=== PATIENT | male | born 1985 | race Caucasian/White ===

== ENCOUNTER 2021-06-23 14:51 | Emergency (ER) | payer MEDICAID ==
[~2021-06-23] VITALS: Ht 177.8 cm; Wt 120.0 kg
[~2021-06-23 14:51] MED LIST: ONDA4TAB59 PO
[2021-06-23] MEDS ORDERED: albuterol 2.5 MG/3 ML nebule CONTNEB PRN (15:05)
[2021-06-23] MEDS ORDERED: methylPREDNISolone sod succ 125mg/2ml vial IV ONE (15:05)
[2021-06-23] MEDS ORDERED: normal saline 1000ML IV soln IVB ONE (15:05)
[2021-06-23] MEDS ORDERED: magnesium 2GM in 50ml NS 50 ML IV ONE (15:05)
[2021-06-23] MEDS ORDERED: ipratropium/albuterol 3ml nebule NEB ONE (16:30)
[2021-06-23] MEDS ORDERED: PRED20TA PO (17:08)
[2021-06-23] MEDS ORDERED: BUDE180A INH (17:08)
[2021-06-23] MEDS ORDERED: IPRA3AMP31 IH (18:02)
[2021-06-23 18:15] VITALS: BP 126/60
== END 2021-06-23 18:16 | disposition home or self-care (01) ==
LOC: ER 14:51
DX: J45.901 Unspecified asthma with (acute) exacerbation (principal); F15.90 Other stimulant use, unspecified, uncomplicated; Z79.899 Other long term (current) drug therapy
CPT/HCPCS: 71045; 93005; 94644; 96365; 96366; 96375; 99285; J2930; J3475; J7030; 94640; 94760; A7015

== ENCOUNTER 2022-02-05 08:32 | Emergency (ER) | payer MEDICAID ==
[~2022-02-05] VITALS: Ht 177.8 cm; Wt 122.7 kg
[~2022-02-05 08:32] MED LIST changes: +BUDE180A INH; +IPRA3AMP31 IH
[2022-02-05] MEDS ORDERED: ondansetron 4mg rapidly disintigrating tab PO ONE (10:40)
[2022-02-05] MEDS ORDERED: acetaminophen 325mg tablet PO ONE (10:40)
[2022-02-05] MEDS ORDERED: ketorolac trometh inj. 60 MG/2 ML VIAL IM ONE (10:40)
[2022-02-05] MEDS ORDERED: proCHLORperazine 10 MG/2 ml inj IM ONE (10:45)
[2022-02-05] MEDS ORDERED: normal saline 1000ML IV soln IV ONE (12:10)
[2022-02-05 12:30] LABS: BASOPHILS % (AUTO) 0.4 % (0-1); EOSINOPHILS % (AUTO) 0.5 % (0-6); HEMOGLOBIN 16.2 g/dl (14.0-17.9); LYMPHOCYTES # (AUTO) 0.6 X10'3 (1.1-4.8); LYMPHOCYTES % (AUTO) 11.2 % (21-51); MEAN CORPUSCULAR HEMOGLOBIN 30.3 PG (27.0-31.0); MEAN CORPUSCULAR HGB CONC 33.7 g/dL (33.0-36.5); MEAN PLATELET VOLUME 9.1 FL (7.4-10.4); MONOCYTES # (AUTO) 0.8 X10'3 (0-0.9); MONOCYTES % (AUTO) 15.1 % (2-12); NEUTROPHILS # (AUTO) 3.7 X10'3 (1.8-7.7); NEUTROPHILS % (AUTO) 72.8 % (42-75); PLATELET COUNT 138 X10'3 (140-440); RED BLOOD COUNT 5.34 X10'6 (4.70-6.10); RED CELL DISTRIBUTION WIDTH 12.9 % (11.5-14.5); WHITE BLOOD COUNT 5.1 X10'3 (4.5-11.0)
[2022-02-05 12:46] LABS: ALANINE AMINOTRANSFERASE 72 U/L (12-78); ALBUMIN 3.6 G/DL (3.4-5.0); ALBUMIN/GLOBULIN RATIO 1.1 (1.1-1.5); ALKALINE PHOSPHATASE 75 IU/L (46-116); ANION GAP 6 (8-16); ASPARTATE AMINO TRANSFERASE 36 U/L (10-37); BILIRUBIN,TOTAL 0.6 MG/DL (0.1-1.0); BLOOD UREA NITROGEN 14 MG/DL (7-18); CALCIUM 8.8 MG/DL (8.5-10.1); CHLORIDE 103 MMOL/L (99-107); CREATININE 1.08 MG/DL (0.60-1.10); GLUCOSE 109 MG/DL (70-104); MAGNESIUM 1.7 MG/DL (1.5-2.4); SODIUM 135 MMOL/L (135-145); TOTAL CARBON DIOXIDE 25.9 MMOL/L (24-32); eGFR 77 ML/MIN
[2022-02-05 13:06] VITALS: BP 138/87
[2022-02-05 13:22] LABS: CLARITY,URINE CLEAR (Clear); COLOR,URINE YELLOW (Yellow); GLUCOSE, URINE NEGATIVE (Neg); KETONES,URINE NEGATIVE (Neg); LEUKOCYTE ESTERASE ,URINE NEGATIVE (Neg); NITRITES, URINE NEGATIVE (Neg); OCCULT BLOOD,URINE NEGATIVE (Neg); PROTEIN,URINE NEGATIVE (Neg); UROBILINOGEN,URINE 0.2 E.U/dL (0.2-1.0)
[2022-02-05 13:25] LABS: UA COLLECTION TYPE VOIDED
== END 2022-02-05 13:08 | disposition home or self-care (01) ==
LOC: ER 08:33
DX: B34.9 Viral infection, unspecified (principal); Z20.822 Contact with and (suspected) exposure to COVID-19; J45.909 Unspecified asthma, uncomplicated; F15.10 Other stimulant abuse, uncomplicated; Z79.899 Other long term (current) drug therapy
CPT/HCPCS: 71045; 80053; 81003; 83605; 83735; 84145; 85025; 87040; 87502; 87503; 87811; 96360; 96372; 99284; J0780; J1885; J7030

== ENCOUNTER 2023-03-03 19:16 | Emergency (ER) | payer MEDICAID ==
[~2023-03-03] VITALS: Ht 182.9 cm; Wt 112.4 kg
[2023-03-03 20:13] VITALS: BP 150/70; PULSE 76; RESP 16; TEMP 98; O2SAT 98
== END 2023-03-03 20:29 | disposition home or self-care (01) ==
LOC: ER 19:17
DX: I10 Essential (primary) hypertension (principal); J45.909 Unspecified asthma, uncomplicated; F15.10 Other stimulant abuse, uncomplicated; Z91.030 Bee allergy status
CPT/HCPCS: 93005; 99283